=== PATIENT | female | born 1940 | race Caucasian/White ===

== ENCOUNTER 2017-11-23 06:50 | Emergency (ER) | payer MEDICARE, OTHER ==
[~2017-11-23] VITALS: Ht 162.6 cm; Wt 53.0 kg
[~2017-11-23 06:50] MED LIST: CEPH-572 PO; EZET10TA14 PO; FLUT1AER INH; LISI-604 PO; ROSU40TA PO
[2017-11-23 07:32] LABS: CLARITY,URINE Clear (Clear); COLOR,URINE Yellow (Yellow); GLUCOSE, URINE Negative (Neg); KETONES,URINE Trace mg/dl (Neg); LEUKOCYTE ESTERASE ,URINE Trace (Neg); NITRITES, URINE Negative (Neg); OCCULT BLOOD,URINE Negative (Neg); PH,URINE 5.5 (4.8-8.0); PROTEIN,URINE Trace mg/dl (Neg)
[2017-11-23 07:34] LABS: UA COLLECTION TYPE CLN CATCH MIDSTREAM
[2017-11-23 07:42] LABS: BACTERIA,URINE NONE SEEN /HPF (Neg); MUCUS STRANDS FEW /LPF (Neg); RBC,URINE NONE SEEN /HPF (0-2); SQUAMOUS EPITHELIAL CELL,UR FEW /LPF (FEW); WBC,URINE 0-4 /HPF (0-4)
[2017-11-23 07:43] LABS: HYALINE CASTS 0-3 /LPF (NEGATIVE)
[2017-11-23] MEDS ORDERED: CEPH-572 PO (08:29)
[2017-11-23] MEDS ORDERED: PHEN-824 PO (08:29)
[2017-11-23 08:46] VITALS: BP 141/75
== END 2017-11-23 08:50 | disposition home or self-care (01) ==
LOC: ER 06:51
DX: N39.0 Urinary tract infection, site not specified (principal); I25.2 Old myocardial infarction; Z95.1 Presence of aortocoronary bypass graft; Z88.2 Allergy status to sulfonamides; Z88.1 Allergy status to other antibiotic agents; Z79.899 Other long term (current) drug therapy
CPT/HCPCS: 81001; 87088; 99284

== ENCOUNTER 2018-02-08 23:17 | Emergency (ER) | payer MEDICARE, OTHER ==
[~2018-02-08] VITALS: Ht 162.6 cm; Wt 52.0 kg
[~2018-02-08 23:17] MED LIST changes: -CEPH-572 PO; +CITA-311 PO; -FLUT1AER INH
[2018-02-09 00:37] VITALS: BP 155/77
[2018-02-09] MEDS ORDERED: IBUP-1984 PO (01:51)
== END 2018-02-09 01:58 | disposition home or self-care (01) ==
LOC: ER 23:18
DX: S46.912A Strain of unspecified muscle, fascia and tendon at shoulder and upper arm level, left arm, initial encounter (principal); I25.2 Old myocardial infarction; Z90.49 Acquired absence of other specified parts of digestive tract; Z95.1 Presence of aortocoronary bypass graft; Z88.2 Allergy status to sulfonamides; Z88.8 Allergy status to other drugs, medicaments and biological substances; Z79.899 Other long term (current) drug therapy; X50.0XXA Overexertion from strenuous movement or load, initial encounter; Y93.89 Activity, other specified; Y92.89 Other specified places as the place of occurrence of the external cause; Y99.8 Other external cause status
CPT/HCPCS: 73030; 99284

== ENCOUNTER 2019-01-04 14:54 | Observation (INO) | payer MEDICARE, OTHER ==
[~2019-01-04] VITALS: Ht 162.6 cm; Wt 50.0 kg
[2019-01-04 15:31] LABS: BASOPHILS % (AUTO) 0.3 % (0-1); EOSINOPHILS % (AUTO) 0.4 % (0-6); HEMATOCRIT 39.7 % (35.0-45.0); HEMOGLOBIN 13.2 g/dl (12.0-16.0); LYMPHOCYTES # (AUTO) 1.3 X10'3 (1.1-4.8); LYMPHOCYTES % (AUTO) 17.4 % (21-51); MEAN CORPUSCULAR HEMOGLOBIN 32.6 PG (27.0-31.0); MEAN CORPUSCULAR HGB CONC 33.3 g/dL (33.0-36.5); MEAN CORPUSCULAR VOLUME 97.9 FL (78-98); MEAN PLATELET VOLUME 8.6 FL (7.4-10.4); MONOCYTES # (AUTO) 0.6 X10'3 (0-0.9); MONOCYTES % (AUTO) 8.3 % (2-12); NEUTROPHILS # (AUTO) 5.6 X10'3 (1.8-7.7); NEUTROPHILS % (AUTO) 73.6 % (42-75); PLATELET COUNT 184 X10'3 (140-440); RED BLOOD COUNT 4.05 X10'6 (4.20-5.60); RED CELL DISTRIBUTION WIDTH 13.3 % (11.5-14.5); WHITE BLOOD COUNT 7.6 X10'3 (4.5-11.0)
[2019-01-04 15:43] LABS: PARTIAL THROMBOPLASTIN TIME 33 SECONDS (22-32)
[2019-01-04 15:47] LABS: ALANINE AMINOTRANSFERASE 32 U/L (12-78); ALBUMIN 3.5 G/DL (3.4-5.0); ALBUMIN/GLOBULIN RATIO 0.9 (1.1-1.5); ALKALINE PHOSPHATASE 114 IU/L (46-116); ANION GAP 7 (8-16); ASPARTATE AMINO TRANSFERASE 34 U/L (10-37); BILIRUBIN,TOTAL 0.3 MG/DL (0.1-1.0); BLOOD UREA NITROGEN 28 MG/DL (7-18); BUN/CREATININE RATIO 29.5 (6.6-38.0); CALCIUM 9.2 MG/DL (8.5-10.1); CHLORIDE 100 MMOL/L (99-107); CREATININE 0.95 MG/DL (0.40-0.90); GLUCOSE 132 MG/DL (70-104); SODIUM 136 MMOL/L (135-145); TOTAL CARBON DIOXIDE 28.6 MMOL/L (24-32); TOTAL PROTEIN 7.6 G/DL (6.4-8.2); eGFR 57 ML/MIN
--- NOTE | 2019-01-04 17:22 | NUR ---
pt resting quietly on gurney, resp even and unlabored, skin p/w/d, waiting to be evaluated by hospitalist, family at bedside, pt has no c/o chest pain/pressure, no SOB at this time
[2019-01-04] MEDS ORDERED: LISI2.5T2 PO (17:23)
[2019-01-04] MEDS ORDERED: ROSU40TA21 PO (17:23)
[2019-01-04] MEDS ORDERED: EZET10TA26 PO (17:23)
[2019-01-04] MEDS ORDERED: RANI150T44 PO (17:24)
[2019-01-04] MEDS ORDERED: potassium Cl 40MEQ/NS 500ml 500 ML IV PRN ×2 (17:45)
[2019-01-04] MEDS ORDERED: ondansetron/PF 4mg/2ml inj IV PRN (17:45)
[2019-01-04] MEDS ORDERED: mag hydrox/Alum hydrox/simeth 30ml oral suspension PO PRN (17:45)
[2019-01-04] MEDS ORDERED: magnesium Cl slow-release 64mg tablet PO PRN (17:45)
[2019-01-04] MEDS ORDERED: magnesium hydroxide 30ml (MOM) UD suspension PO PRN (17:45)
[2019-01-04] MEDS ORDERED: magnesium 2GM in 50ml NS 50 ML IV PRN (17:45)
[2019-01-04] MEDS ORDERED: potassium Cl 20 mEq SR tablet PO PRN ×2 (17:45)
[2019-01-04] MEDS ORDERED: morphine 2 MG/ML inj. syringe IV PRN ×2 (17:45)
[2019-01-04] MEDS ORDERED: acetaminophen 325mg tablet PO PRN (17:45)
[2019-01-04] MEDS ORDERED: bisacodyl 10mg suppository rectal RC PRN (17:45)
[2019-01-04] MEDS ORDERED: magnesium 4gm in 100ml NS 100 ML IV PRN (17:45)
[2019-01-04] MEDS ORDERED: metoprolol tartrate 1mg/ml inj IV PRN (17:50)
[2019-01-04] MEDS ORDERED: aminophylline 250mg/10ml inj. IV PRN (17:50)
[2019-01-04] MEDS ORDERED: nitroGLYCERIN 0.4mg SUBLingual tab SL PRN ×2 (17:50)
[2019-01-04] MEDS ORDERED: regadenoson 0.4mg/5ml syringe IV PRN (17:50)
[2019-01-04] MEDS ORDERED: iohexol 350MG/ML 100ml bottle IV ONE (17:54)
[2019-01-04] MEDS ORDERED: enoxaparin 50mg/0.5ml (from 3ml vial) syringe SUBCUT SCH (17:55)
[2019-01-04] MEDS: sodium chloride 0.45% 1,000 ML IV SCH (18:59)
[2019-01-04] MEDS: aspirin 81mg tablet.DR PO SCH (18:59)
[2019-01-04 19:30] VITALS: BP 171/68
[2019-01-04 19:34] LABS: CLARITY,URINE CLEAR (Clear); COLOR,URINE STRAW (Yellow); GLUCOSE, URINE NEGATIVE (Neg); KETONES,URINE NEGATIVE (Neg); LEUKOCYTE ESTERASE ,URINE NEGATIVE (Neg); NITRITES, URINE NEGATIVE (Neg); OCCULT BLOOD,URINE TRACE-INTACT (Neg); PH,URINE 5.5 (4.8-8.0); PROTEIN,URINE NEGATIVE (Neg); UROBILINOGEN,URINE 0.2 E.U/dL (0.2-1.0)
[2019-01-04 19:43] LABS: BACTERIA,URINE NONE SEEN /HPF (Neg); RBC,URINE 0-2 /HPF (0-2); SQUAMOUS EPITHELIAL CELL,UR FEW /LPF (FEW); UA COLLECTION TYPE CLN CATCH MIDSTREAM; WBC,URINE NONE SEEN /HPF (0-4)
--- NOTE | 2019-01-04 19:57 | NUR ---
Patient in room [facility]. I have received report from SHELBY MEIER RN and had the opportunity to ask questions and will assume patient care upon arrival to the floor. Addendum: 01/04/19 at 8 by Odessa Mills RN Amended: Links added.
[2019-01-04] MEDS ORDERED: non-formulary drug (Ranitidine HCl (Zantac) 1 TAB) PO SCH (20:00)
[2019-01-04] MEDS ORDERED: heparin, porcine 5000 units/ml vial SQ SCH (20:00)
[2019-01-04] MEDS ORDERED: metoprolol tartrate 12.5mg (1/2 tablet) PO SCH (20:00)
--- NOTE | 2019-01-04 20:07 | NUR ---
pt arrived to the room at this time by vargas.
--- NOTE | 2019-01-04 20:20 | NUR ---
po meds given oritated to the room and nasal swab done. hs meds given. pt put on tele #4
[2019-01-04] MEDS: docusate sod 100mg capsule PO SCH (20:21)
[2019-01-04] MEDS: famotidine 20mg tablet PO SCH (20:31)
--- NOTE | 2019-01-04 21:35 | NUR ---
pt accidently knocked leads off and reapplied to her.
--- NOTE | 2019-01-04 23:00 | NUR ---
pt resting on her side eyes closed without s&s of distress at this time.
[2019-01-05] VITALS (13 sets, daily range): BP systolic 112–169; BP diastolic 46–109
--- NOTE | 2019-01-05 01:00 | NUR ---
resting on her side without s&s of distress at this time.
--- NOTE | 2019-01-05 02:45 | NUR ---
c/o burning with urination. ua negative for uti. pt given cranberry juice and aware she is to have a Lexiscan in the am
--- NOTE | 2019-01-05 04:25 | NUR ---
tele called regarding pt heart rate 42 and vitals 112/49 with heart rate 43 sats 98% reviewed pt meds of lopressor 12.5 mg given at 2000 pm with hr 67 and bp at time 171/68 & zesteril 2.[address] Garcia said nothing to be done.
[2019-01-05 05:14] LABS: BASOPHILS % (AUTO) 0.6 % (0-1); EOSINOPHILS # (AUTO) 0.1 X10'3 (0-0.9); EOSINOPHILS % (AUTO) 0.9 % (0-6); HEMATOCRIT 35.9 % (35.0-45.0); LYMPHOCYTES # (AUTO) 1.5 X10'3 (1.1-4.8); LYMPHOCYTES % (AUTO) 24.3 % (21-51); MEAN CORPUSCULAR HEMOGLOBIN 32.7 PG (27.0-31.0); MEAN CORPUSCULAR HGB CONC 33.5 g/dL (33.0-36.5); MEAN CORPUSCULAR VOLUME 97.4 FL (78-98); MEAN PLATELET VOLUME 8.8 FL (7.4-10.4); MONOCYTES # (AUTO) 0.6 X10'3 (0-0.9); MONOCYTES % (AUTO) 10.1 % (2-12); NEUTROPHILS # (AUTO) 3.8 X10'3 (1.8-7.7); NEUTROPHILS % (AUTO) 64.1 % (42-75); PLATELET COUNT 148 X10'3 (140-440); RED BLOOD COUNT 3.68 X10'6 (4.20-5.60); RED CELL DISTRIBUTION WIDTH 13.3 % (11.5-14.5)
[2019-01-05 05:21] LABS: ANION GAP 7 (8-16); BLOOD UREA NITROGEN 21 MG/DL (7-18); BUN/CREATININE RATIO 30.9 (6.6-38.0); CALCIUM 9.2 MG/DL (8.5-10.1); CHLORIDE 105 MMOL/L (99-107); CHOL/HDL RATIO 2.3 (0.00-4.99); CHOLESTEROL 196 MG/DL (0-200); CREATININE 0.68 MG/DL (0.40-0.90); GLUCOSE 91 MG/DL (70-104); HDL CHOLESTEROL 84 MG/DL (35-60); LDL CHOLESTEROL 96 MG/DL (50-100); MAGNESIUM 1.9 MG/DL (1.5-2.4); POTASSIUM 3.6 MMOL/L (3.5-5.1); SODIUM 142 MMOL/L (135-145); TOTAL CARBON DIOXIDE 29.7 MMOL/L (24-32); TRIGLYCERIDES 40 MG/DL (20-135); eGFR 84 ML/MIN
--- NOTE | 2019-01-05 05:26 | NUR ---
resting eyes closed no s&s of distress.
--- NOTE | 2019-01-05 06:45 | NUR ---
Patient in room [facility]. I have received report from RAFAEL Saxena and had the opportunity to ask questions and assume patient care.
[2019-01-05] MEDS: aspirin 81mg tablet.DR PO SCH (07:11)
--- NOTE | 2019-01-05 07:12 | NUR ---
Problems reprioritized. Patient report given, questions answered & plan of care reviewed with Alexa Barrera. Addendum: 01/05/19 at 0713 by Odessa Mills RN Amended: Links added.
[2019-01-05] MEDS ORDERED: non-formulary drug (Rosuvastatin Calcium 1 TAB) PO SCH (08:00)
[2019-01-05] MEDS ORDERED: ezetimibe 10mg tablet PO SCH (08:00)
[2019-01-05] MEDS ORDERED: lisinopril 2.5mg tablet PO SCH (08:00)
[2019-01-05] MEDS ORDERED: atorvastatin 20mg tablet PO SCH (08:00)
[2019-01-05] MEDS ORDERED: enoxaparin 50mg/0.5ml (from 3ml vial) syringe SUBCUT SCH (08:00)
[2019-01-05] MEDS ORDERED: K and/or MAG REPLACEMENT MC SCH (08:00)
[2019-01-05] MEDS: docusate sod 100mg capsule PO SCH (08:08)
[2019-01-05] MEDS: famotidine 20mg tablet PO SCH (08:09)
[2019-01-05] MEDS: sodium chloride 0.45% 1,000 ML IV SCH (08:09)
[2019-01-05] MEDS ORDERED: amox tr/potassium clavulanate 875/125mg TAB PO SCH (08:30)
--- NOTE | 2019-01-05 09:15 | NUR ---
Pt off the floor to Directr for kevin scan
[2019-01-05] MEDS ORDERED: regadenoson 0.4mg/5ml syringe IV ONE (09:45)
[2019-01-05] MEDS ORDERED: aminophylline inj. 10 ML IV ONE (09:45)
--- NOTE | 2019-01-05 10:40 | NUR ---
Pt returned to room 344A from kevin scan.
[2019-01-05] MEDS ORDERED: ASPI-1071 PO (14:18)
[2019-01-05] MEDS ORDERED: AMOX-580 PO (14:18)
[2019-01-05] MEDS ORDERED: ALBU6.7H INH (14:18)
--- NOTE | 2019-01-05 15:05 | NUR ---
DC inst provided to pt. IV DC'd, tip intact. All belongings sent w/pt. PCT ambulated pt to front lobby.
== END 2019-01-05 15:08 | disposition home or self-care (01) ==
LOC: ER 16:00 → SUR 3N 17:43 → CMPBEDREQ 19:47
PROVIDERS: ADMIT Internal Medicine; ATTEND Internal Medicine
DX: J18.9 Pneumonia, unspecified organism (principal); E86.0 Dehydration; I25.10 Atherosclerotic heart disease of native coronary artery without angina pectoris; I10 Essential (primary) hypertension; E78.5 Hyperlipidemia, unspecified; K21.9 Gastro-esophageal reflux disease without esophagitis; Z95.5 Presence of coronary angioplasty implant and graft; Z88.2 Allergy status to sulfonamides
CPT/HCPCS: 36415; 71045; 71275; 78452; 80048; 80053; 80061; 81001; 83735; 83880; 84484; 85025; 85610; 85730; 87070; 93005; 93017; 93306; 96361; 96372; 96374; 99284; A9500; G0378; J0280; Q9967; J1650

== ENCOUNTER 2019-01-09 07:24 | Emergency (ER) | payer MEDICARE, OTHER ==
[~2019-01-09] VITALS: Ht 162.6 cm; Wt 110.0 kg
[~2019-01-09 07:24] MED LIST changes: +ALBU6.7H INH; +AMOX-580 PO; +ASPI-1071 PO; -CITA-311 PO; -EZET10TA14 PO; +EZET10TA26 PO; -LISI-604 PO; +LISI2.5T2 PO; +RANI150T44 PO; -ROSU40TA PO; +ROSU40TA21 PO
--- NOTE | 2019-01-09 08:21 | NUR ---
PATIENT AMBULATED IN [facility] FROM RESTROOM. SPO2 MAINTAINED 95% ON RA. PATIENT DENIES SOB WHILE AMBULATING.
[2019-01-09 08:51] VITALS: BP 165/67
== END 2019-01-09 08:53 | disposition home or self-care (01) ==
LOC: ER 07:25
DX: F41.9 Anxiety disorder, unspecified (principal); R53.83 Other fatigue; I25.2 Old myocardial infarction; Z90.49 Acquired absence of other specified parts of digestive tract; Z95.1 Presence of aortocoronary bypass graft; Z87.01 Personal history of pneumonia (recurrent); Z79.899 Other long term (current) drug therapy; Z88.1 Allergy status to other antibiotic agents; Z88.2 Allergy status to sulfonamides; Z79.82 Long term (current) use of aspirin
CPT/HCPCS: 71046; 93005; 99283; 99284

== ENCOUNTER 2019-02-08 17:51 | Emergency (ER) | payer MEDICARE, OTHER ==
[~2019-02-08] VITALS: Ht 162.6 cm; Wt 54.0 kg
[~2019-02-08 17:51] MED LIST changes: -AMOX-580 PO; -EZET10TA26 PO; +EZET10TA48 PO
--- NOTE | 2019-02-08 19:04 | NUR ---
PATIENT ON LISINOPRIL, CRESTOR AND ZETIA
[2019-02-08] MEDS ORDERED: FLUT16SP2 BOTHNARES (20:50)
[2019-02-08 21:00] VITALS: BP 156/56
== END 2019-02-08 21:03 | disposition home or self-care (01) ==
LOC: ER 17:52
DX: R09.81 Nasal congestion (principal); R06.02 Shortness of breath; I25.2 Old myocardial infarction; Z90.49 Acquired absence of other specified parts of digestive tract; Z88.2 Allergy status to sulfonamides; Z88.1 Allergy status to other antibiotic agents; Z79.82 Long term (current) use of aspirin; Z79.899 Other long term (current) drug therapy
CPT/HCPCS: 93005; 99283

== ENCOUNTER 2021-11-13 19:45 | Emergency (ER) | payer MEDICARE, OTHER ==
[~2021-11-13] VITALS: Ht 162.6 cm; Wt 54.5 kg
[~2021-11-13 19:45] MED LIST changes: -ALBU6.7H INH; +ALBU6.7H9 INH; +FLUT16SP2 BOTHNARES; +LISI2.5T14 PO; -LISI2.5T2 PO; +RANI-648 PO; -RANI150T44 PO; -ROSU40TA21 PO; +ROSU40TA22 PO
[2021-11-13 22:06] LABS: CLARITY,URINE CLEAR (Clear); COLOR,URINE YELLOW (Yellow); GLUCOSE, URINE NEGATIVE (Neg); KETONES,URINE NEGATIVE (Neg); LEUKOCYTE ESTERASE ,URINE SMALL (Neg); NITRITES, URINE NEGATIVE (Neg); OCCULT BLOOD,URINE NEGATIVE (Neg); PROTEIN,URINE NEGATIVE (Neg); UROBILINOGEN,URINE 0.2 E.U/dL (0.2-1.0)
[2021-11-13 22:20] LABS: UA COLLECTION TYPE VOIDED
[2021-11-13 22:21] LABS: BACTERIA,URINE FEW /HPF (Neg); RBC,URINE NONE SEEN /HPF (0-2); SQUAMOUS EPITHELIAL CELL,UR FEW /LPF (FEW)
[2021-11-13 22:22] LABS: BASOPHILS % (AUTO) 0.4 % (0-1); EOSINOPHILS # (AUTO) 0.1 X10'3 (0-0.9); EOSINOPHILS % (AUTO) 0.6 % (0-6); HEMATOCRIT 36.1 % (35.0-45.0); HEMOGLOBIN 12.1 g/dl (12.0-16.0); LYMPHOCYTES # (AUTO) 1.2 X10'3 (1.1-4.8); LYMPHOCYTES % (AUTO) 13.1 % (21-51); MEAN CORPUSCULAR HEMOGLOBIN 32.3 PG (27.0-31.0); MEAN CORPUSCULAR HGB CONC 33.6 g/dL (33.0-36.5); MEAN CORPUSCULAR VOLUME 96.2 FL (78-98); MEAN PLATELET VOLUME 7.8 FL (7.4-10.4); MONOCYTES # (AUTO) 0.7 X10'3 (0-0.9); MONOCYTES % (AUTO) 7.7 % (2-12); NEUTROPHILS # (AUTO) 7.3 X10'3 (1.8-7.7); NEUTROPHILS % (AUTO) 78.2 % (42-75); PLATELET COUNT 201 X10'3 (140-440); RED BLOOD COUNT 3.75 X10'6 (4.20-5.60); RED CELL DISTRIBUTION WIDTH 13.5 % (11.5-14.5); WHITE BLOOD COUNT 9.3 X10'3 (4.5-11.0)
[2021-11-13 22:28] LABS: ALANINE AMINOTRANSFERASE 39 U/L (12-78); ALBUMIN 2.9 G/DL (3.4-5.0); ALBUMIN/GLOBULIN RATIO 0.7 (1.1-1.5); ALKALINE PHOSPHATASE 112 IU/L (46-116); ANION GAP 6 (8-16); ASPARTATE AMINO TRANSFERASE 43 U/L (10-37); BILIRUBIN,TOTAL 0.2 MG/DL (0.1-1.0); BLOOD UREA NITROGEN 22 MG/DL (7-18); BUN/CREATININE RATIO 21.8 (6.6-38.0); CALCIUM 8.6 MG/DL (8.5-10.1); CHLORIDE 103 MMOL/L (99-107); CREATININE 1.01 MG/DL (0.40-0.90); GLUCOSE 158 MG/DL (70-104); POTASSIUM 3.9 MMOL/L (3.5-5.1); SODIUM 139 MMOL/L (135-145); TOTAL CARBON DIOXIDE 29.6 MMOL/L (24-32); TOTAL PROTEIN 7.3 G/DL (6.4-8.2); eGFR 53 ML/MIN
[2021-11-13] MEDS ORDERED: CefTRIAXone 500MG IM Kit w/LIDOcaine IM ONE (22:35)
[2021-11-13] MEDS ORDERED: CEPH250T PO (22:35)
[2021-11-13] MEDS ORDERED: CefTRIAXone 1000mg IM Kit (w/lidocaine diluent) IM ONE (22:35)
[2021-11-13] MEDS ORDERED: cephalexin 250mg capsule PO ONE (22:35)
--- NOTE | 2021-11-13 23:19 | NUR ---
PT HAS BEEN CLEARED FOR DISCHARGE WAITING FOR RIDE
--- NOTE | 2021-11-14 00:59 | NUR ---
report called to a brand new day
[2021-11-14 02:20] VITALS: BP 118/64
== END 2021-11-14 02:24 | disposition home or self-care (01) ==
LOC: ER 19:45
DX: N39.0 Urinary tract infection, site not specified (principal); M79.604 Pain in right leg; M79.605 Pain in left leg; F03.90 Unspecified dementia, unspecified severity, without behavioral disturbance, psychotic disturbance, mood disturbance, and anxiety; I25.10 Atherosclerotic heart disease of native coronary artery without angina pectoris; Z87.440 Personal history of urinary (tract) infections; Z87.01 Personal history of pneumonia (recurrent); Z90.49 Acquired absence of other specified parts of digestive tract; Z98.890 Other specified postprocedural states; Z60.2 Problems related to living alone; Z88.1 Allergy status to other antibiotic agents; Z88.2 Allergy status to sulfonamides; Z79.82 Long term (current) use of aspirin; Z79.2 Long term (current) use of antibiotics; Z79.899 Other long term (current) drug therapy
CPT/HCPCS: 36415; 71045; 80053; 81001; 84484; 85025; 87088; 93005; 96372; 99285; J0696; 87077; 87186